=== PATIENT | female | born 1950 | race Caucasian/White ===

== ENCOUNTER → 2018-07-14 | Outpatient (CLI) | payer OTHER | END | disposition home or self-care (01) | LOC: RAD 10:06 | DX: M54.5 Low back pain (principal); M54.16 Radiculopathy, lumbar region; M17.11 Unilateral primary osteoarthritis, right knee ==

== ENCOUNTER 2018-08-11 12:55 | Outpatient (CLI) | payer OTHER | END 2018-08-11 13:04 | disposition home or self-care (01) | LOC: NUCLEAR 12:55 | DX: M81.0 Age-related osteoporosis without current pathological fracture (principal); M47.9 Spondylosis, unspecified ==

== ENCOUNTER → 2023-02-22 | Outpatient (CLI) | payer OTHER | END | disposition home or self-care (01) | LOC: RAD 10:30 | PROVIDERS: ATTEND Orthopaedic Surgery | DX: M25.561 Pain in right knee (principal); M25.562 Pain in left knee; S83.200A Bucket-handle tear of unspecified meniscus, current injury, right knee, initial encounter | CPT/HCPCS: 73721 ==